=== PATIENT | male | born 1995 | race Hispanic/Latino ===

== ENCOUNTER → 2020-04-04 | Outpatient (CLI) | payer BC ==
--- NOTE | 2020-04-04 10:43 | Diagnostic Imaging Report ---
EXAM: Complete Abdominal Ultrasound INDICATION: ^[id number] ^UPPER ABDOMINAL PAIN COMPARISON: CT abdomen 07/03/2010 TECHNIQUE: Transverse and longitudinal images of the right upper abdomen were obtained. FINDINGS: Liver: Size: 14.5 cm in the right midclavicular line, normal Appearance: Normal echogenicity, smooth contour Mass: No focal masses Gallbladder: Stones/Sludge: None Wall: 0.3 cm Appearance: No pericholecystic fluid or hydrops. Sonographic Turpin's Sign: Negative Bile Ducts: Intrahepatic Ducts: No dilatation Extrahepatic Ducts: Common bile duct measures 0.3 cm, no dilatation Pancreas: Visualized portions of the pancreatic head, neck and proximal body are normal. Right Kidney: Size: 11.9 x 4.4 x 4.4 cm Echogenicity: Normal Parenchymal thickness: Normal Collecting System: No hydronephrosis Stone: None Cyst/Mass: None Vessels: Aorta: Visualized portions are normal Inferior Vena Cava: Visualized portions are normal Main Portal Vein: 1.3 cm, normal size with hepatopetal flow. Free Fluid: No ascites or pleural effusion IMPRESSION: Unremarkable right upper quadrant abdominal ultrasound. Signed by: Richar Mendeita MD on 04/04/2020 10:40 AM
== END ==
LOC: US 08:59
PROVIDERS: ATTEND Internal Medicine Gastroenterology
DX: R10.10 Upper abdominal pain, unspecified (principal)
CPT/HCPCS: 76705